=== PATIENT | male | born 1960 | race Caucasian/White ===

== ENCOUNTER 2018-05-20 09:17 | Day surgery (SDC) | payer OTHER ==
[2018-05-20] MEDS: SOD CHLORIDE 0.9% 1,000 ML IV (07:00)
[2018-05-20] MEDS ORDERED: GENTAMICIN 80 MG INJ (09:56)
[2018-05-20] MEDS ORDERED: LIDOCAINE 4% (MPF) 5 ML INJ (09:56)
[2018-05-20] MEDS ORDERED: TOBRAMYCIN/DEXAMETH 3.5 GM OPH OINT (09:57)
[2018-05-20] MEDS ORDERED: EPINEPHrine 1 MG INJ (09:57)
[2018-05-20] MEDS: BACITRACIN/POLYMYXIN 28.35 GM OINT TOP (13:29)
[2018-05-20] MEDS ORDERED: morphine 2 MG INJ IV (13:30)
[2018-05-20] MEDS ORDERED: LIDOCAINE 1% (MDV) 20 ML INJ (13:36)
[2018-05-20] MEDS ORDERED: ROCURONIUM 50 MG INJ (13:36)
[2018-05-20] MEDS ORDERED: SUGAMMADEX SODIUM 200 MG/2 ML VIAL IV (13:36)
[2018-05-20] MEDS ORDERED: PROPOFOL 20 ML (13:36)
[2018-05-20] MEDS: ONDANSETRON 4 MG INJ IV (14:28)
[2018-05-20] MEDS: HYDROCODONE/APAP (5/325) TAB PO (15:27)
== END 2018-05-20 16:44 | disposition home or self-care (01) ==
LOC: SDS 09:17
DX: Q85.09 Other neurofibromatosis (principal)
CPT/HCPCS: 0420T